=== PATIENT | male | born 1995 | race Caucasian/White ===

== ENCOUNTER 2018-01-30 00:10 | Emergency (ER) | payer OTHER ==
[2018-01-30] MEDS ORDERED: LIDOCAINE 1% W/EPI 1:100,000 MDV 50 ML VIAL ONE (01:12)
--- NOTE | 2018-01-30 01:47 | EDPHYS ---
Physician Documentation [facility] Name: Roman Mora Age: 22 yrs Sex: Male : 1995 Arrival Date: 01/30/2018 Time: 00:13 Bed 7 Private MD: ED Physician Cole Foley HPI: 01/30 01:33 This 22 yrs old Male presents to ER via [employer] with complaints of gs laceration x 2 to head. 01:33 The patient or guardian reports a laceration. The complaints affect the mouth and left gs side of the back of head. Context of injury: resulted from a direct blow, a door. Onset: The symptoms/episode began/occurred acutely, just prior to arrival. Associated signs and symptoms: Loss of consciousness: This patient did not experience any loss of consciousness. Pertinent negatives: headache, vomiting. Severity of symptoms: At their worst the symptoms were moderate, in the emergency department the symptoms are unchanged. The patient has not experienced similar symptoms in the past. Historical: - Allergies: 00:17 No Known Allergies; fc - Home Meds: 00:17 None [Active]; fc - PMHx: 00:17 None; fc - PSHx: 00:17 None; fc - Immunization history:: Last tetanus immunization: up to date. - Social history:: Smoking status: Patient/guardian denies using tobacco. - Ebola Screening: : Patient negative for fever greater than or equal to 101.5 degrees Fahrenheit, and additional compatible Ebola Virus Disease symptoms Patient denies exposure to infectious person Patient denies travel to an Ebola-affected area in the 21 days before illness onset. ROS: 01:33 All other systems are negative. gs Exam: 01:33 Eyes: Pupils equal round and reactive to light, extra-ocular motions intact. Lids and gs lashes normal. Conjunctiva and sclera are non-icteric and not injected. Cornea within normal limits. Periorbital areas with no swelling, redness, or edema. ENT: Nares patent. No nasal discharge, no septal abnormalities noted. Tympanic membranes are normal and external auditory canals are clear. Oropharynx with no redness, swelling, or masses, exudates, or evidence of obstruction, uvula midline. Mucous membranes moist. Neck: Trachea midline, no thyromegaly or masses palpated, and no cervical lymphadenopathy. Supple, full range of motion without nuchal rigidity, or vertebral point tenderness. No Meningismus. Chest/axilla: Normal chest wall appearance and motion. Nontender with no deformity. No lesions are appreciated. Cardiovascular: Regular rate and rhythm with a normal S1 and S2. No gallops, murmurs, or rubs. Normal PMI, no JVD. No pulse deficits. Respiratory: Lungs have equal breath sounds bilaterally, clear to auscultation and percussion. No rales, rhonchi or wheezes noted. No increased work of breathing, no retractions or nasal flaring. Abdomen/GI: Soft, non-tender, with normal bowel sounds. No distension or tympany. No guarding or rebound. No evidence of tenderness throughout. Back: No spinal tenderness. No costovertebral tenderness. Full range of motion. Skin: Warm, dry with normal turgor. Normal color with no rashes, no lesions, and no evidence of cellulitis. MS/ Extremity: Pulses equal, no cyanosis. Neurovascular intact. Full, normal range of motion. Neuro: Awake and alert, GCS 15, oriented to person, place, time, and situation. Cranial nerves II-XII grossly intact. Motor strength 5/5 in all extremities. Sensory grossly intact. Cerebellar exam normal. Normal gait. 01:33 Constitutional: The patient appears alert, awake. 01:33 Head/face: Noted is a laceration(s), that is deep, 3 cm(s), of the left side of the back of head. 01:33 ENT: Mouth: Lips: lacerated, approximately 3 cm(s), upper vermilion border. Vital Signs: 00:13 BP 122 / 80; Pulse 72; Resp 18; Temp 98.3(O); Pulse Ox 96% on R/A; Weight 65.77 kg (R); fc Height 5 ft. 10 in. (177.80 cm) (R); Pain 3/10; 01:12 BP 100 / 67; Pulse 70; Resp 18; Pulse Ox 98% on R/A; ea 01:56 BP 116 / 76; Pulse 68; Resp 18; Temp 98(O); Pulse Ox 98% on R/A; Pain 0/10; ea 00:13 Body Mass Index 20.81 (65.77 kg, 177.80 cm) [place] Coma Score: 01:33 Eye Response: spontaneous(4). Verbal Response: oriented(5). Motor Response: obeys commands(6). Total: 15. Laceration: 01:33 Wound Repair of 3cm ( 1.2in ) subcutaneous laceration to left side of the back of head. gs Distal neuro/vascular/tendon intact. Anesthesia: Local anesthetic administered with 3 mls of 1% lidocaine. Wound prep: Simple cleansing with betadine, Wound irrigation with saline. Skin closed with 4 1-0 Gray using simple sutures and sterile technique. 01:33 Wound Repair of 2.5cm ( 1.0in ) full thickness laceration to upper vermilion border. gs Distal neuro/vascular/tendon intact. Anesthesia: Local anesthetic administered with 3 mls of 1% lidocaine w/ Epi. Wound prep: Simple cleansing, Wound irrigation with saline. Skin closed with 4 5-0 Prolene using simple sutures and sterile technique. Patient tolerated well. MDM: 01:18 Patient medically screened. 01:33 Data reviewed: vital signs, nurses notes. Administered Medications: 01:22 Drug: Lidocaine-Epinephrine -1%: (1:100,000) 10 ml {Note: administered by provider.} ea Volume: 20 ml; Route: Infiltration; Disposition: 01/30/18 01:47 Discharged to Home. Impression: Laceration without foreign body of other part of head. - Condition is Stable. - Discharge Instructions: Laceration Care, Adult, [id number]. - Medication Reconciliation Form, Thank You Letter, Antibiotic Education, Prescription Opioid Use form. - Follow up: Private Physician; When: 7 - 10 days; Reason: Staple/Suture removal. Signatures: Madina Vera RN RN fc Antunez, Elena, RN RN ea Starr, Gregory, MD MD Corrections: (The following items were deleted from the chart) 01:47 01:47 01/30/2018 01:47 Discharged to Home. Impression: Laceration without foreign body gs of other part of head. Condition is Stable. Forms are Medication Reconciliation Form, Thank You Letter, Antibiotic Education, Prescription Opioid Use. Follow up: Private Physician; When: 2 - 3 days; Reason: Re-evaluation by your physician. 01:57 01:47 01/30/2018 01:47 Discharged to Home. Impression: Laceration without foreign body ea of other part of head. Condition is Stable. Discharge Instructions: Laceration Care, Adult, [id number]. Forms are Medication Reconciliation Form, Thank You Letter, Antibiotic Education, Prescription Opioid Use. Follow up: Private Physician; When: 7 - 10 days; Reason: Staple/Suture removal. gs
--- NOTE | 2018-01-30 01:47 | ER ---
Nurse's Notes [facility] Name: Roman Mora Age: 22 yrs Sex: Male : 1995 Arrival Date: 01/30/2018 Time: 00:13 Bed 7 Private MD: Diagnosis: Laceration without foreign body of other part of head Presentation: 01/30 00:13 Presenting complaint: Patient states: that he got his head stuck in the cell door when it was closing. Denies any LOC. Lacerations noted to left upper lip and left back scalp. Also know noted to left back scalp. Transition of care: [facility]. Onset of symptoms was January 29, 2018 at 22:30. Risk Assessment: Do you want to hurt yourself or someone else? Patient reports no desire to harm self or others. Initial Sepsis Screen: Does the patient meet any 2 criteria? No. Patient's initial sepsis screen is negative. Does the patient have a suspected source of infection? No. Patient's initial sepsis screen is negative. Care prior to arrival: Bleeding of injury controlled. 00:13 Method Of Arrival: [employer] Enforcement: [place] [employer] 00:13 Acuity: [facility] 3 fc Historical: - Allergies: 00:17 No Known Allergies; fc - Home Meds: 00:17 None [Active]; fc - PMHx: 00:17 None; fc - PSHx: 00:17 None; fc - Immunization history:: Last tetanus immunization: up to date. - Social history:: Smoking status: Patient/guardian denies using tobacco. - Ebola Screening: : Patient negative for fever greater than or equal to 101.5 degrees Fahrenheit, and additional compatible Ebola Virus Disease symptoms Patient denies exposure to infectious person Patient denies travel to an Ebola-affected area in the 21 days before illness onset. Screenin:16 Abuse screen: Denies threats or abuse. Nutritional screening: No deficits noted. Tuberculosis screening: No symptoms or risk factors identified. Fall Risk None identified. Assessment: 00:20 General: Appears in no apparent distress. uncomfortable, Behavior is calm, cooperative, ea appropriate for age. Pain: Denies pain. Neuro: Level of Consciousness is awake, alert, obeys commands, Oriented to person, place, time, situation. Cardiovascular: Patient's skin is warm and dry. Respiratory: Airway is patent Respiratory effort is even, unlabored, Respiratory pattern is regular, symmetrical, Breath sounds are clear bilaterally. GI: Abdomen is non-distended. Derm: Skin is pink, warm \T\ dry. Injury Description: Head injury sustained to left parietal area Laceration sustained to upper vermilion border, upper lip and left corner of mouth is clean, 0.5 to 2.5 cm long. 01:23 Reassessment: Patient and/or family updated on plan of care and expected duration. Pain ea level reassessed. Patient is alert, oriented x 3, equal unlabored respirations, skin warm/dry/pink. provider at bedside. 01:53 Reassessment: Patient and/or family updated on plan of care and expected duration. Pain ea level reassessed. Patient is alert, oriented x 3, equal unlabored respirations, skin warm/dry/pink. Discharge instructions given to patient and detention guards, both verbalized the understanding of instruction. Vital Signs: 00:13 BP 122 / 80; Pulse 72; Resp 18; Temp 98.3(O); Pulse Ox 96% on R/A; Weight 65.77 kg (R); fc Height 5 ft. 10 in. (177.80 cm) (R); Pain 3/10; 01:12 BP 100 / 67; Pulse 70; Resp 18; Pulse Ox 98% on R/A; ea 01:56 BP 116 / 76; Pulse 68; Resp 18; Temp 98(O); Pulse Ox 98% on R/A; Pain 0/10; ea 00:13 Body Mass Index 20.81 (65.77 kg, 177.80 cm) [place] Coma Score: 01:33 Eye Response: spontaneous(4). Verbal Response: oriented(5). Motor Response: obeys gs commands(6). Total: 15. ED Course: 00:13 Patient arrived in ED. am2 00:13 Arm band placed on Patient placed in an exam room. fc 00:15 Triage completed. fc 00:16 Patient has correct armband on for positive identification. Bed in low position. Call light in reach. [facility] guards at bedside. 00:20 Dee Guerrero RN is Primary Nurse. ea 00:30 Cole Foley MD is Attending Physician. gs 01:24 Assist provider with laceration repair on left parietal area and left corner of mouth ea that was between 2.6 to 7.5 cm using sutures. Set up tray. Performed by Cole Foley MD Patient tolerated well. 01:56 Patient did not have IV access during this emergency room visit. ea Administered Medications: 01:22 Drug: Lidocaine-Epinephrine -1%: (1:100,000) 10 ml {Note: administered by provider.} ea Volume: 20 ml; Route: Infiltration; Outcome: 01:47 Discharge ordered by . 01:54 Discharged to [facility] 01:54 Condition: improved 01:54 Discharge instructions given to patient, [facility] 01:57 Patient left the ED. ea Signatures: Madina Vera RN RN Evi Hayden Elena RN Cole Oden ea, MD MD Corrections: (The following items were deleted from the chart) 01:25 00:16 No provider procedures requiring assistance completed. za
== END 2018-01-30 01:57 | disposition home or self-care (01) ==
LOC: ER 00:10
PROC: 0JQ00ZZ Repair Scalp Subcutaneous Tissue and Fascia, Open Approach (ICD-10-PCS; principal; 2018-01-30)
PROC: 0CQ0XZZ Repair Upper Lip, External Approach (ICD-10-PCS; 2018-01-30)
DX: S01.511A Laceration without foreign body of lip, initial encounter (principal); W22.8XXA Striking against or struck by other objects, initial encounter; Y93.9 Activity, unspecified; Y92.9 Unspecified place or not applicable
CPT/HCPCS: 99283